=== PATIENT | male | born 1990 | race Caucasian/White ===

== ENCOUNTER 2019-04-25 19:25 | Emergency (ER) | payer OTHER ==
[~2019-04-25] VITALS: Ht 175.3 cm; Wt 70.8 kg
[2019-04-25 19:53] VITALS: BP 132/84
--- NOTE | 2019-04-25 20:01 | NUR ---
PT AMBULTAED TO LOBBY, TEJAS
--- NOTE | 2019-04-25 21:25 | NUR ---
PT CALLED IN ER LOBBY NO ANSWER
--- NOTE | 2019-04-25 21:31 | NUR ---
PATIENT LEFT WITHOUT BEING SEEN BY DR. MOORE. NO FURTHER CARE PROVIDED FOR PATIENT.
== END 2019-04-25 21:28 | disposition left against medical advice (07) ==
LOC: MED 19:25
DX: R20.0 Anesthesia of skin (principal); Z53.21 Procedure and treatment not carried out due to patient leaving prior to being seen by health care provider